=== PATIENT | male | born 1960 | race Caucasian/White ===

== ENCOUNTER 2023-06-29 14:59 | Emergency (ER) | payer BC, SELFPAY ==
--- NOTE | ~2023-06-29 | XR_ITS ---
EXAMINATION: XR FINGER, LEFT CLINICAL INFORMATION: Third finger bruising. COMPARISON: None available. TECHNIQUE: Three views of the left long finger. FINDINGS: No evidence of acute fractures or subluxation. Joint spaces are maintained. No osseous erosions. No abnormal soft tissue calcifications nor unexpected radiopaque foreign bodies. XR/XR finger LT min 2V IMPRESSION: No significant radiographic abnormality seen in the left hand.
[2023-06-29 15:48] VITALS: BP 142/79; PULSE 47; RESP 17; TEMP 36.1; O2SAT 98; BMI 26.5
--- NOTE | 2023-06-29 15:49 | ED.GENADULT ---
HPI - General Adult General Chief complaint: Extremity Problem Stated complaint: finger numb/ turning black and blue Time Seen by Provider: 06/29/23 16:57 Source: patient, RN notes reviewed and old records reviewed Mode of arrival: ambulatory History of Present Illness HPI narrative: 62-year-old male with no significant past medical history presenting to the ED complaining of left middle finger discoloration noted this afternoon while at work typing. States initially started with distal finger numbness/cold feeling and then progressed to black and blue discoloration to proximal finger. Reports symptoms have improved since onset. Denies weakness, injury, trauma/fall, headache, lightheadedness/dizziness, neck pain, CP Onset (ago): hour(s) Related Data Allergies Allergy/AdvReac Type Severity Reaction Status Date / Time No Known Allergies Allergy Unverified 04/29/20 15:36 [No Known Allergies*] Review of Systems Review of Systems: Constitutional: No Fever, No Chills ENT/Mouth: No Ear Pain, No Nasal Congestion,No sore throat, No Rhinorrhea, No Swallowing Difficulty Cardiovascular: No Chest Pain, No SOB Respiratory: No Cough Musculoskeletal: No joint pain, No Myalgias, No Joint Swelling Skin: + discoloration, No rash Neuro: No Weakness, + Numbness, + Paresthesias Yes all other systems are reviewed and are negative Constitutional: Constitutional: Reports as per [facility] Past Medical History Attestation statement: The following information was validated with the patient. Source: old records reviewed Social History Social History Advance Directives: No Advance Directives Information Provided: No Physical Exam ED Vital Signs: Vital Signs - 24 hr 06/29/23 15:48 Temperature 96.9 F Pulse Rate 47 L Respiratory Rate 17 Blood Pressure 142/79 H Pulse Oximetry 98 Oxygen Delivery Method Room Air BMI result Body Mass Index 26.5 Const General: cooperative, healthy appearing and no acute distress Orientation/consciousness: patient oriented x3 Limitations: no limitations HENMT Head: Yes normal to inspection and Yes atraumatic Ears: hearing grossly normal bilaterally General nose exam: Normal external nose present Face and sinus: Yes normal facial exam Eyes General: appearance normal, both eyes and all related structures EOM: EOMs intact bilaterally Neck Neck: Yes normal visual inspection and Yes no meningeal signs Resp Effort & Inspection: normal respiratory effort and no respiratory distress Cardio Rate: regular rate Skin Wounds: no wounds Neuro General: patient oriented x3, tone normal and no meningeal signs Cranial nerves: Yes CN's II-XII intact bilaterally Gait exam (Neuro): Normal gait present Extrem Other: Please refer to images above. Mild discoloration noted to proximal left 3rd digit, radial/palmar aspect. Nontender, no fluctuance/induration. Full range of motion intact. Neurovascularly intact. No LUE pitting edema or streaking General: Yes full ROM and Yes capillary refill normal Course Course Course Narrative: This is an RME: Additional HPI, ROS, PE not included below will be deferred to primary provider. This is a [id number], with no known medical problems, presenting to the emergency department with a complaint of left third finger discoloration, numbness and tingling since today. Pt states that he was typing at work when he noticed the tip of his finger go numb. He states that the finger started to turn blue/purple and get cold. Patient with good capillary refill, ecchymosis noted to the base of the 3rd finger, range of motion intact. Plan: X-ray 1713--XR finger LT min 2V IMPRESSION: No significant radiographic abnormality seen in the left hand. Results discussed with patient recommended warm compresses and follow-up with PCP. Discussed worrisome signs and symptoms and strict return precautions, and when to return to the emergency department. They verbalized understanding and feel safe for discharge at this time. Medical Decision Making Medical Decision Making MDM Narrative: 62-year-old male with no significant past medical history presenting to the ED complaining of left middle finger discoloration noted this afternoon while at work typing. On exam vital signs stable, NAD, nontoxic appearing, physical exam as noted above. Concern for ?Raynaud's vs popped blood vessel/superficial thrombophlebitis. Low suspicion for fracture/dislocation, abscess, cellulitis or DVT. Low concern for cervical radiculopathy or ICH/CVA/TIA Plan: X-rays ordered in triage Please refer to course for remaining clinical decision making, interpretation of labs/imaging results, and discussions with consultants and/or family members. Differential Diagnosis Differential Diagnoses: The differential diagnosis associated with the presentation includes As above Independent Interpretation I performed an independent interpretation of an: Plain X-Ray (My interpretation: Appear unremarkable) Radiology Impression Discussion of test interpretation with radiology: I have reviewed the radiologist's reading. External Record Review External record reviewed: Inpatient record, Office record, Outpatient record, Prior outpatient labs, Prior outpatient radiology, Primary care record and Outside ED record Tests considered The following testing was considered but not selected: As above Prescription Management I considered prescription management with: Pain Medication and Antibiotic Discharge Plan Discharge Clinical Impression: Discoloration of skin of finger Patient Disposition: Home, Self-Care Instructions: Superficial Thrombophlebitis (ED) Additional Instructions: Your x-rays are unremarkable We suspect you have a superficial popped blood vessel. Keep an eye on the area, and discoloration is spreading, finger becomes numb/week, if streaking up your arm or fever return to the ED Follow-up with your doctor as well as a hand specialist as needed Referrals: Sharron Estes MD [Physician] - (as needed (hand specialist)) Physician,Talon Hughes [Primary Care Provider] -
[2023-06-29 17:48] VITALS: BP 133/80; PULSE 50; RESP 16; O2SAT 100
== END 2023-06-29 17:50 | disposition home or self-care (01) ==
PROVIDERS: Emergency Provider Emergency Medicine
DX: L60.8 Other nail disorders (principal); M79.645 Pain in left finger(s); R20.0 Anesthesia of skin; Z79.899 Other long term (current) drug therapy
CPT/HCPCS: 73140; 99283; 99284